=== PATIENT | female | born 1990 | race Caucasian/White ===

== ENCOUNTER 2021-11-24 12:59 | Emergency (ER) | payer OTHER ==
[~2021-11-24] VITALS: Ht 172.7 cm; Wt 64.6 kg
[2021-11-24 13:03] VITALS: BP 130/75
[2021-11-24] MEDS ORDERED: METH-1681 PO (14:32)
[2021-11-24] MEDS ORDERED: ACET-10509 PO (14:32)
[2021-11-24 15:05] VITALS: BP 128/80
--- NOTE | 2021-11-24 15:06 | NUR ---
Patient discharged with v/s stable. Written and verbal after care instructions given and explained. Patient alert, oriented and verbalized understanding of instructions. Ambulatory with steady gait. All questions addressed prior to discharge. ID band removed. Patient advised to follow up with PMD. Rx of ROBAXIN, MOTRIN given. Patient educated on indication of medication including possible reaction and side effects. Opportunity to ask questions provided and answered.
== END 2021-11-24 15:06 | disposition home or self-care (01) ==
LOC: MED 12:59
DX: S43.402A Unspecified sprain of left shoulder joint, initial encounter (principal); Z88.1 Allergy status to other antibiotic agents; Z88.5 Allergy status to narcotic agent; Z88.6 Allergy status to analgesic agent; Z91.018 Allergy to other foods; V49.88XA Car occupant (driver) (passenger) injured in other specified transport accidents, initial encounter; Y93.89 Activity, other specified; Y92.89 Other specified places as the place of occurrence of the external cause; Y99.8 Other external cause status
CPT/HCPCS: 99283